=== PATIENT | female | born 1970 | race Caucasian/White ===

== ENCOUNTER 2022-07-31 09:19 | Emergency (ER) | payer MEDICAID ==
[~2022-07-31] VITALS: Ht 162.6 cm; Wt 82.0 kg
[2022-07-31 10:24] LABS: BASOPHILS % 0.5 % (0.0-2.0); HEMATOCRIT. 38.7 % (36.0-48.0); HEMOGLOBIN. 13.1 g/dL (12.0-16.0); LYMPHOCYTES % 28.7 % (20.0-50.0); MEAN CORPUSCULAR HEMOGLOBIN 31.6 pg (28.0-32.0); MEAN CORPUSCULAR VOLUME 93.8 fL (81.0-99.0); MEAN PLATELET VOLUME 8.2 fl (7.4-10.4); MONOCYTES % 6.7 % (2.0-8.0); NEUTROPHILS % 61.1 % (40.0-76.0); PLATELET 302 x1000/uL (130-400); RED BLOOD CELL COUNT 4.13 mill/uL (4.2-5.4); RED CELL DISTRIBUTION WIDTH 13.3 % (11.6-14.6)
[2022-07-31 10:34] LABS: CHLORIDE 108 mEq/L (98-107)
[2022-07-31] MEDS ORDERED: ACETAMINOPHEN 325MG TABLET PO STA (11:52)
[2022-07-31] MEDS ORDERED: SODIUM CHLORIDE 0.9% 1,000 ML IV ONE (12:00)
[2022-07-31] MEDS ORDERED: MECLIZINE 25MG TABLET PO ONE (12:15)
[2022-07-31 15:37] LABS: CLARITY URINE CLEAR (CLEAR); COLOR URINE YELLOW (YELLOW); KETONES URINE 1+ (NEGATIVE); LEUKOCYTE ESTERASE URINE NEGATIVE (NEGATIVE); NITRITE URINE NEGATIVE (NEGATIVE); OCCULT BLOOD URINE TRACE (NEGATIVE); PROTEIN URINE NEGATIVE (NEGATIVE); SPECIFIC GRAVITY URINE 1.007 (1.005-1.030); UROBILINOGEN URINE 0.2 E.U./dL (0.2-1.0)
[2022-07-31 15:52] LABS: CHLORIDE 106 mEq/L (98-107)
[2022-07-31] MEDS ORDERED: MECL-159 PO (16:19)
[2022-07-31 16:41] VITALS: BP 13/69
== END 2022-07-31 16:43 | disposition home or self-care (01) ==
LOC: ER 09:19
DX: R42 Dizziness and giddiness (principal)
CPT/HCPCS: 36415; 70450; 71045; 80048; 80053; 81003; 82962; 83880; 84484; 85025; 93005; 96360; 99285; J7030; J8597

== ENCOUNTER 2023-03-22 10:03 | Emergency (ER) | payer MEDICAID ==
[~2023-03-22] VITALS: Ht 167.6 cm; Wt 64.0 kg
[~2023-03-22 10:03] MED LIST: MECL-159 PO
[2023-03-22 10:06] VITALS: O2SAT 96
[2023-03-22 10:34] LABS: BASOPHILS % 0.4 % (0.0-2.0); EOSINOPHILS % 0.8 % (0.0-5.0); HEMATOCRIT. 37.6 % (36.0-48.0); HEMOGLOBIN. 13.3 g/dL (12.0-16.0); LYMPHOCYTES % 31.9 % (20.0-50.0); MEAN CORPUSCULAR HEMOGLOBIN 32.2 pg (28.0-32.0); MEAN CORPUSCULAR HGB CONC 35.2 g/dL (31.0-37.0); MEAN CORPUSCULAR VOLUME 91.3 fL (81.0-99.0); MEAN PLATELET VOLUME 8.2 fl (7.4-10.4); MONOCYTES % 4.3 % (2.0-8.0); NEUTROPHILS % 62.6 % (40.0-76.0); PLATELET 306 x1000/uL (130-400); RED BLOOD CELL COUNT 4.12 mill/uL (4.2-5.4); RED CELL DISTRIBUTION WIDTH 12.8 % (11.6-14.6); WHITE BLOOD COUNT 10.3 x1000/uL (4.5-11.0)
[2023-03-22 10:44] LABS: CHLORIDE 106 mEq/L (98-107); INDEX HEMOLYSI 1 (1-3); INDEX ICTERIC 1 (1-4); INDEX LIPEMIC 1 (1-3); POTASSIUM 3.5 mEq/L (3.5-5.1); SODIUM 138 mEq/L (136-145)
[2023-03-22 10:54] LABS: ALANINE AMINOTRANSFERASE 31 IU/L (13-61); ALBUMIN 3.7 g/dL (3.4-5.0); ASPARTATE AMINOTRANSFERASE 19 IU/L (15-37); BILIRUBIN TOTAL 0.6 mg/dL (0.1-1.0); CALCIUM 9.4 mg/dL (8.5-10.1); CARBON DIOXIDE 24 mEq/L (21-32); CREATININE 0.5 mg/dL (0.6-1.3); ETHANOL BLOOD < 10 mg/dL (-10); GLUCOSE 183 mg/dL (70-105); PROTEIN TOTAL 8.3 g/dL (6.0-8.3); UREA NITROGEN BLOOD 11 mg/dL (7-21)
[2023-03-22 11:13] LABS: DIFFERENTIAL COMMENT 1
[2023-03-22 11:15] LABS: CLARITY URINE CLEAR (CLEAR); COLOR URINE YELLOW (YELLOW); GLUCOSE URINE NEGATIVE (NEGATIVE); KETONES URINE NEGATIVE (NEGATIVE); LEUKOCYTE ESTERASE URINE NEGATIVE (NEGATIVE); NITRITE URINE NEGATIVE (NEGATIVE); OCCULT BLOOD URINE 1+ (NEGATIVE); PROTEIN URINE NEGATIVE (NEGATIVE); SPECIFIC GRAVITY URINE 1.003 (1.005-1.030); UROBILINOGEN URINE 0.2 E.U./dL (0.2-1.0)
[2023-03-22 11:17] LABS: BACTERIA URINE NONE SEEN; WBC URINE NONE SEEN /hpf (0-2); YEAST URINE NONE SEEN
[2023-03-22 11:34] LABS: SQUAMOUS EPITHELIAL CELL URINE RARE /lpf (RARE/1+)
[2023-03-22 11:35] LABS: RBC URINE 0-2 /hpf (0-2)
[2023-03-22 11:36] LABS: *AMPHETAMINES SCREEN URINE NEGATIVE (NEGATIVE); *BARBITURATES SCREEN URINE NEGATIVE (NEGATIVE); *BENZODIAZEPINES SCREEN URINE NEGATIVE (NEGATIVE); *COCAINE SCREEN URINE NEGATIVE (NEGATIVE); CANNABINOID URINE SCREEN NEGATIVE (NEGATIVE); ECSTASY MDMA SCREEN URINE NEGATIVE (NEGATIVE); METHADONE URINE SCREEN NEGATIVE (NEGATIVE); OPIATES URINE SCREEN NEGATIVE (NEGATIVE); PHENCYCLIDINE URINE SCREEN NEGATIVE (NEGATIVE)
[2023-03-22] MEDS ORDERED: KETOROLAC 30MG/ML VIAL IV ONE (12:15)
[2023-03-22 15:01] VITALS: BP 108/68; PULSE 64; RESP 14; TEMP 98.2
== END 2023-03-22 15:17 | disposition home or self-care (01) ==
LOC: ER 10:03
DX: G40.A09 Absence epileptic syndrome, not intractable, without status epilepticus (principal); E11.9 Type 2 diabetes mellitus without complications; I49.9 Cardiac arrhythmia, unspecified
CPT/HCPCS: 80053; 80305; 81003; 80320; 82962; 85025; 36415; 93005; 96374; 99284; J1885; Z7610 ×2; G0480

== ENCOUNTER 2024-10-14 19:32 | Emergency (ER) | payer MEDICAID ==
[~2024-10-14] VITALS: Ht 162.6 cm; Wt 69.2 kg
[~2024-10-14 19:32] MED LIST changes: -MECL-159 PO; +MECL-299 PO
[2024-10-14 19:46] VITALS: TEMP 36.8; O2SAT 97
[2024-10-14 20:28] VITALS: TEMP 98.2
[2024-10-14] MEDS: ACETAMINOPHEN 500MG TABLET PO ONE (20:28)
[2024-10-14 21:12] VITALS: BP 111/67; PULSE 77; RESP 16; O2SAT 96
== END 2024-10-14 21:14 | disposition home or self-care (01) ==
LOC: ER 19:32
DX: S09.90XA Unspecified injury of head, initial encounter (principal); E11.9 Type 2 diabetes mellitus without complications; W01.0XXA Fall on same level from slipping, tripping and stumbling without subsequent striking against object, initial encounter; Y93.89 Activity, other specified; Y92.89 Other specified places as the place of occurrence of the external cause; Y99.8 Other external cause status
CPT/HCPCS: 99284